=== PATIENT | female | born 1970 | race African-American/Black ===

== ENCOUNTER 2017-10-19 15:20 | Emergency (ER) | payer BC, OTHER ==
[~2017-10-19] VITALS: Ht 162.6 cm; Wt 74.5 kg
[2017-10-19 15:30] VITALS: TEMP 37.4; Ht 162.6 cm; Wt 74.5 kg
[2017-10-19] MEDS ORDERED: IBUPROFEN 600 MG TAB PO STA (15:37)
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
[2017-10-19 16:57] VITALS: BP 132/87; PULSE 74; O2SAT 99
== END 2017-10-19 16:58 | disposition home or self-care (01) ==
LOC: C.EDC 15:22
DX: M54.2 Cervicalgia (principal); V89.2XXA Person injured in unspecified motor-vehicle accident, traffic, initial encounter